=== PATIENT | female | born 1995 | race Caucasian/White ===

== ENCOUNTER 2017-11-26 15:35 | Inpatient (IN) | payer BC ==
--- NOTE | 2017-11-26 17:42 | RADIOLOGY REPORT (SQ) ---
EXAM DESCRIPTION: U/S OB LIMITED COMPLETED DATE/TIME: 11/26/2017 5:26 pm REASON FOR STUDY: sporadic OB care, COMPARISON: None. TECHNIQUE: Limited transabdominal grayscale ultrasound for evaluation of specific requested obstetri tejinder parameters. LIMITATIONS: None. FINDINGS: CERVICAL LENGTH: Not measured. GERMAINE: 3.6 cm, fluid was identified in the right lower quadrant only. FHR: 133 beats per minute. PRESENTATION: Cephalic. OTHER: Composite ultrasound age 34 weeks 1 day. EFW: 2296 g. MELISSA 01/06/2018 IMPRESSION: LIMITED OBSTETRICAL ULTRASOUND WITH MEASURED PARAMETERS DELINEATED ABOVE. Trimester of : Third trimester - 28 weeks to delivery. TECHNICAL DOCUMENTATION: JOB ID: [id number] [employer]- All Rights Reserved Reading location - IP/workstation name: [email or web address]
[2017-11-26 17:51] LABS: URINE AMPHETAMINES SCREEN NEGATIVE; URINE BARBITURATES SCREEN NEGATIVE; URINE BENZODIAZEPINES SCREEN NEGATIVE; URINE COCAINE SCREEN NEGATIVE; URINE MARIJUANA (THC) SCREEN NEGATIVE; URINE METHADONE SCREEN NEGATIVE; URINE PHENCYCLIDINE SCREEN NEGATIVE
[2017-11-26] MEDS ORDERED: RINGERS SOLUTION,LACTATED 1,000 ML IV ONE (18:40)
[2017-11-26] MEDS ORDERED: RINGERS SOLUTION,LACTATED 1,000 ML IV PRN (18:40)
[2017-11-26] MEDS ORDERED: PENICILLIN G POTASSIUM 5,000,000 UNIT in DEXTROSE 5%-WATER 100 ML IV ONE (18:40)
[2017-11-26] MEDS ORDERED: PENICILLIN G-K 5 MILLION UNIT VIAL ONE (18:42)
[2017-11-26] MEDS ORDERED: OXYTOCIN/NORMAL SALINE 20 UNIT/1,000 ML RTUINJ ONE (18:42)
[2017-11-26] MEDS ORDERED: LIDOCAINE 1% INJ-PF (10 MG/ML) 30 ML SDV ONE (18:42)
[2017-11-26] MEDS ORDERED: MISOPROSTOL 0.2 MG TABLET ONE (18:42)
[2017-11-26 18:50] LABS: CHLAM PCR NOT DETECTED (NOT DETECT); GON PCR NOT DETECTED (NOT DETECT)
[2017-11-26] MEDS ORDERED: EPHEDRINE SULFATE INJ 50 MG/1 ML AMPULE ONE (18:53)
[2017-11-26] MEDS ORDERED: BUPIVACAINE HCL 0.25 % INJ/PF (2.5 MG/1 ML) 30 ML VIAL ONE (18:53)
[2017-11-26] MEDS ORDERED: FENTANYL/BUPIVACAINE/NS/PF 0 MCG/0 ML RTUINJ EPI ONE (18:55)
[2017-11-26] MEDS ORDERED: FENTANYL/BUPIVACAINE/NS/PF 200 MCG/100 ML RTUINJ EPI ONE (19:13)
[2017-11-26 19:21] LABS: HEMATOCRIT 35.3 % (36.0-47.0); HEMOGLOBIN 12.3 g/dL (12.0-15.5); MEAN CORPUSCULAR HEMOGLOBIN 33.9 pg (27.0-33.4); MEAN CORPUSCULAR HGB CONC 34.9 g/dL (32.0-36.0); MEAN CORPUSCULAR VOLUME 97 fl (80-97); PLATELET COUNT 289 10^3/uL (150-450); RED BLOOD COUNT 3.64 10^6/uL (3.72-5.28); RED CELL DISTRIBUTION WIDTH 12.6 % (11.5-14.0); WHITE BLOOD COUNT 14.5 10^3/uL (4.0-10.5)
[2017-11-26 20:10] LABS: URINE AMPHETAMINES SCREEN NEGATIVE; URINE BARBITURATES SCREEN NEGATIVE; URINE BENZODIAZEPINES SCREEN NEGATIVE; URINE COCAINE SCREEN NEGATIVE; URINE MARIJUANA (THC) SCREEN NEGATIVE; URINE METHADONE SCREEN NEGATIVE; URINE PHENCYCLIDINE SCREEN NEGATIVE
[2017-11-26] MEDS ORDERED: DIPH/PERTUSS(ACELL)/TETANUS VAC/PF 0.5 ML SYR (>=10YO) IM PRN (20:17)
[2017-11-26] MEDS ORDERED: ZOLPIDEM TARTRATE 5 MG TABLET PO PRN (20:17)
[2017-11-26] MEDS ORDERED: PROMETHAZINE HCL 25 MG TABLET PO PRN (20:17)
[2017-11-26] MEDS ORDERED: NA PHOS,M-B/NA PHOS,DI-BA (ADULT) 133 ML ENEMA PR PRN (20:17)
[2017-11-26] MEDS ORDERED: MEASLES,MUMPS&RUBELLA VACC/PF 0.5 ML VIAL SUBCUT PRN (20:17)
[2017-11-26] MEDS ORDERED: DIBUCAINE 1% OINTMENT 28 GM TP PRN (20:17)
[2017-11-26] MEDS ORDERED: DIPHENHYDRAMINE HCL 25 MG CAPSULE PO PRN (20:17)
[2017-11-26] MEDS ORDERED: MISOPROSTOL 0.2 MG TABLET PR PRN (20:17)
[2017-11-26] MEDS ORDERED: PSEUDOEPHEDRINE HCL 30 MG TABLET PO PRN (20:17)
[2017-11-26] MEDS ORDERED: ACETAMINOPHEN 650 MG SUPP.RECT PR PRN (20:17)
[2017-11-26] MEDS ORDERED: GLYCERIN/WITCH HAZEL LEAF 1 EACH MED..PAD TP PRN (20:17)
[2017-11-26] MEDS ORDERED: OXYTOCIN/NORMAL SALINE 20 UNIT/1,000 ML RTUINJ IV PRN (20:17)
[2017-11-26] MEDS ORDERED: PROMETHAZINE HCL 25 MG SUPP.RECT PR PRN (20:17)
[2017-11-26] MEDS ORDERED: PROMETHAZINE HCL INJ 25 MG/1 ML VIAL IV PRN (20:17)
[2017-11-26] MEDS ORDERED: BENZOCAINE/MENTHOL AEROSOL SPRAY 56 ML TOP PRN (20:17)
[2017-11-26] MEDS ORDERED: MAGNESIUM HYDROXIDE SUSP 30 ML UDCUP PO PRN (20:17)
--- NOTE | 2017-11-26 20:28 | Admission Physical ---
Datetime Report Generated by CPN: 11/26/2017 20:28 CURRENT ADMISSION Chief Complaint: Uterine Contractions Indication for Induction: Not Applicable Admit Impression : Term, Intrauterine ; Active Labor; Intact Membranes Admit Plan: Admit to Unit; Initiate Labor Protocol ALLERGIES Medication Allergies: No Medication Allergies: No Known Allergies (11/26/2017) Latex: No Latex Allergies OBSTETRICAL HISTORY EDC: 12/15/2017 00:00 : 1 Para: 0 Term: 0 : 0 SAB: 0 IAB: 0 Ectopic: 0 Livin Cesareans: 0 VBACs: 0 Multiple Births: 0 Gestational Diabetes: No Rh Sensitization: No Incompetent Cervix: No KIMBERLY: No Infertility: No ART Treatment: No Uterine Anomaly: No IUGR: Yes Hx Previous C/S: No Macrosomia: No Hx Loss/Stillborn: No PIH: No Hx : No Placenta Previa/Abruption: No Depression/PP Depression: Yes PTL/PROM: No Post Hemorrhage: No Current Procedures: Ultrasound Obstetrical History Comments: G1- First unable to verify care, ETOH h/o psa to include, THC, cocaine and herion. H/O Parol intake SEE RECORDS Alcohol: Yes Marijuana : Yes Last Used: 09/30/2017 00:00 Cocaine: Yes Other Illicit Drugs: Yes Cigarettes: Current Some Day Smoker. [id number] MEDICAL HISTORY Diabetes: No Blood Transfusion: No Pulmonary Disease (Asthma, TB): Yes Breast Disease: No Hypertension: No Manager Wholesale Surgery: No Heart Disease: No Hosp/Surgery: Yes Autoimmune Disorder: No Anesthetic Complications: No Kidney Disease: No Abnormal Pap Smear: No Neuro/Epilepsy: Unknown Psychiatric Disorders: Yes Other Medical Diseases: No Hepatitis/Liver Disease: No Significant Family History: No Varicosities/Phlebitis: No Trauma/Violence : No Thyroid Dysfunction: No Medical History Comments: depression- took Zoloft throughout , stopped taking meds two weeks ago, panic disorder with agoraphobia, Tetrogen exposure in early , childhood asthma, wisdom teeth extraction INFECTIOUS HISTORY Gonorrhea: No Genital Herpes: Yes Chlamydia: No Tuberculosis: No Syphilis: No Hepatitis: Yes HIV/AIDS Exposure: No Rash or Viral Illness: No HPV: No Infectious History Comments: HSV and Hep C positive primary outbreak 09/2017 PHYSICAL EXAM General: Normal HEENT: Normal Neurologic: Normal Thyroid: Deferred Heart: Normal Lungs: Normal Breast: Deferred Back: Normal Abdomen: Normal Genitourinary Exam: Normal Extremities: Normal DTRs: Normal Pelvic Type: Adequate Physical Exam Comments: No HSV lesions on exam. Vital Signs: Reviewed VAGINAL EXAM Dilatation: 8 Effacement: 100 Station: 1 Contraction Comments: q 2-3 MEMBRANES Membranes: Intact FETUS A EGA: 37.2 Monitoring: External US FHR- Baseline: 130 Variability: Moderate 6-25bpm Accelerations: 15X15 Decelerations: None FHR Category: Category I Estimated Weight (gm): 2296 Presentation: Vertex Admit Comment: 22yo at 37+5ega by LMP and US at 8+5ega. US done 05/07/2017 and c/w LMP. US today with EFW 2296 with is 2%. Pt with limited care. Only limted records and very limited care. Listed problems: Anxiety/Depression/Agoraphobia, h/o alcoholism, h/o drug use, childhood asthma, h/o swizure poss due to drug use, smoker, teratogen exposure during preg, POss primary outbreak HSV on 09/2017 - treated. Pt arrived with reported ctx although not picking up well onmonitor and reported term but iwth very small abd. cvx closed at presentation. Pt returned from US and noted increase in pain. Cvx now 8cm and admitted. Pt then precipitous delivery. Hep C antibody pos - titer ordered. GBS unknown - PCN one dose given. H/o Drug use TCH/Heroin and cocaine. On parole. UDS positive x 2 during per records (benzo, THC, amphetamines) Was taking adderal and subutex that were not hers. Hep C appears to be a new dx per records. Anticipate vaginal delivery. PLANS FOR LABOR AND DELIVERY Labor and Delivery: None Pain Management: Epidural Feeding Preference: Breast Benefit of Breast Feed Discussed: Yes Circumcision: N/A INFORMED CONSENT Informed Consent Obtained: Vaginal Delivery; Risks, Benefits and Alternatives Discussed Signature: with User ID: [email or web address]
[2017-11-26 20:50] LABS: ALANINE AMINOTRANSFERASE 22 U/L (9-52); ALBUMIN 3.6 g/dL (3.5-5.0); ALKALINE PHOSPHATASE 234 U/L (38-126); ANION GAP 13 (5-19); ASPARTATE AMINO TRANSFERASE 26 U/L (14-36); BILIRUBIN,DIRECT 0.3 mg/dL (0.0-0.4); BILIRUBIN,TOTAL 0.3 mg/dL (0.2-1.3); BLOOD UREA NITROGEN 9 mg/dL (7-20); CALCIUM 9.4 mg/dL (8.4-10.2); CARBON DIOXIDE 18 mmol/L (22-30); CHLORIDE 103 mmol/L (98-107); GLUCOSE 93 mg/dL (75-110); POTASSIUM 4.3 mmol/L (3.6-5.0); SODIUM 134.2 mmol/L (137-145); TOTAL PROTEIN 7.1 g/dL (6.3-8.2)
--- NOTE | 2017-11-26 21:29 | Delivery Summary ---
Del Sum A-C Datetime Report Generated by CPN: 11/26/2017 21:29 DELIVERY PERSONNEL DELIVERY PERSONNEL: [id number] Delivery Doctor:: Princess Rae MD Anesthesiologist:: Gigi Jones MD Labor and Delivery Nurse:: Sondra Flower RNheddler Nurse:: Aydin Richardson RN Animal Technician:: Beronica Hamilton RN Nursery Nurse:: Daniella Armendariz RN Nursery Nurse:: Ruth Ann Adame RN Matting Press Tender/BARREL INSPECTOR: Maki Mathur, SPRAY PAINTER HELPER Additional Personnel: : Emily Swan RN MATERNAL INFORMATION Delivery Anesthesia: Epidural Medications After Delivery: Pitocin Drip 20 Units/1000ml NSS Meds After Delivery Comment: Cytotec 1000 mcg Maternal Complications: Abruptio Placenta Provider Comments: FHR decelerations noted on monitor. In room determined pt now c/c/+1 and AROM with clear fluid noted. Position change and intrauterine recussitation with continued decelerations. patient with adequate expulsive effort. Reviewed need for imminent delivery and need for foreps or VAVD. Pt agreed as r/b/a reviewed. Bladder drained/position confirmed/station and dilation confirmed. Shetty Leukhart forceps attempted to place however they would not articulate well. Therefor FAVD not attempted and VAVD performed. Vacuum applied in proper location with mmHG in green per device instructions and only applied with 3 push/pull efforts. At the conclusion of this noted significant descent past pubic bone and vacuum removed and infant delivered with maternal effort. NICU present due to severe IUGR. SHort cord and possible abruption noted - placenta sent. Placenta delivered spontaneously intact. FF at U. Cytotec placed 1000mcg per rectum. baby to NICU. MOther stable upon provider leaving the room. LABOR SUMMARY EDC: 12/15/2017 00:00 No. Babies in Womb: 1 Attempted: No Labor Anesthesia: Epidural LABOR INFORMATION Reason for Induction: Not Applicable Onset of Labor: 11/26/2017 18:37 Complete Dilatation: 11/26/2017 19:26 Oxytocin: N/A Group B Beta Strep: UNKNOWN Antibiotics # of Doses: 1 Antibiotics Time of Last Dose: 1903 Name of Antibiotic Given: Penicillin Steroids Given: None Reason Steroids Not Administered: Not Applicable MEMBRANES Membranes Rupture Method: Artificial Rupture of Membranes: 11/26/2017 19:29 Length of Rupture (hr): 0.38 Amniotic Fluid Color: Clear Amniotic Fluid Amount: Moderate STAGES OF LABOR Stage 1 hr: 0 Stage 1 min: 49 Stage 2 hr: 0 Stage 2 min: 26 Stage 3 hr: 0 Stage 3 min: 2 Total Time in Labor hr: 1 Total Time in Labor min: 17 VAGINAL DELIVERY Episiotomy: None Laceration #1: None Laceration Extension #1: N/A Laceration Repair: Not Applicable Sponge Count Correct: N/A Sharps Count Correct: N/A CSECTION DELIVERY Primary Indication: N/A Secondary Indication: N/A CSection Incidence: N/A Labor: N/A Elective: N/A CSection Incision: N/A BABY A INFORMATION Infant Delivery Date/Time: 11/26/2017 19:52 Method of Delivery: Vaginal Born in Route : No : N/A Forceps: N/A Vacuum Extraction: Successful Shoulder Dystocia : No PRESENTATION/POSITION BABY A Presentation: Cephalic Cephalic Presentation: Vertex Vertex Position: Left Occipital Anterior Breech Presentation: N/A PLACENTA INFORMATION BABY A Placenta Delivery Time : 11/26/2017 19:54 Placenta Method of Delivery: Spontaneous Placenta Status: Delivered SCORES BABY A Heart Rate 1 min: >100 bpm Resp Effort 1 min: Good Cry Reflex Irritability 1 min: Cough or Sneeze or Pulls Away Muscle Tone 1 min: Active Motion Color 1 min: Body Red [place], Extremities Blue SCORE 1 MIN: 9 Heart Rate 5 min: >100 bpm Resp Effort 5 min: Good Cry Reflex Irritability 5 min: Cough or Sneeze or Pulls Away Muscle Tone 5 min: Active Motion Color 5 min: Body Red [place], Extremities Blue Resuscitation Effort 5 min: Tactile Stimulation SCORE 5 MIN: 9 INFANT INFORMATION BABY A Gestational Age at Delivery: 37.2 Gestational Status: Early Term- 37- 38.6 Weeks Infant Outcome : Liveborn Condition : Fair Sex: Male IDENTIFICATION BABY A Infant Verification Date/Time: 11/26/2017 20:04 ID Band Number: [id number] Mother's Name Verified: Yes Infant RN Verifying : LEE Cabral, LEE Camacho and LEE Richards WEIGHT/LENGTH BABY A Infant Birthweight (gm): 2263 Infant Weight (lb): 5 Infant Weight (oz): 0 Length (in): 17.00 Infant Length (cm): 43.18 CORD INFORMATION BABY A No. Cord Vessels: 3 Nuchal Cord : N/A Cord Blood Taken: Yes-For Storage (Mom's Blood type +) Infant Suction: Mouth ASSESSMENT BABY A Skin to Skin: No BABY B INFORMATION : N/A SIGNATURES Signature: with User ID: [email or web address]
[2017-11-26] MEDS ORDERED: PENICILLIN G POTASSIUM 2,500,000 UNIT in DEXTROSE 5%-WATER 50 ML IV SCH (22:41)
[2017-11-26] MEDS: FAMOTIDINE 20 MG TABLET PO SCH (22:57)
[2017-11-26] MEDS: IBUPROFEN 800 MG TABLET PO SCH (22:57)
[2017-11-26] MEDS: ACETAMINOPHEN WITH CODEINE #3 TABLET PO PRN (23:49)
[2017-11-27] MEDS: IBUPROFEN 800 MG TABLET PO SCH ×3 (06:13→21:55)
[2017-11-27 07:21] LABS: HEMATOCRIT 32.1 % (36.0-47.0); HEMOGLOBIN 11.2 g/dL (12.0-15.5); MEAN CORPUSCULAR HEMOGLOBIN 33.8 pg (27.0-33.4); MEAN CORPUSCULAR VOLUME 97 fl (80-97); PLATELET COUNT 255 10^3/uL (150-450); RED BLOOD COUNT 3.32 10^6/uL (3.72-5.28); RED CELL DISTRIBUTION WIDTH 12.8 % (11.5-14.0); WHITE BLOOD COUNT 13.8 10^3/uL (4.0-10.5)
[2017-11-27] MEDS: ACETAMINOPHEN WITH CODEINE #3 TABLET PO PRN ×3 (08:36→19:56)
[2017-11-27] MEDS: DOCUSATE SODIUM 100 MG CAPSULE PO SCH ×2 (11:10→17:29)
[2017-11-27] MEDS: PRENATAL VITAMIN W DHA CAPSULE PO SCH (11:10)
[2017-11-27] MEDS: FERROUS SULFATE 325 MG TABLET PO SCH ×2 (11:10→17:29)
[2017-11-27] MEDS: SENNOSIDES/DOCUSATE 8.6-50 MG 1 EACH TABLET PO SCH (11:11)
[2017-11-27] MEDS: FAMOTIDINE 20 MG TABLET PO SCH ×2 (11:11→21:55)
--- NOTE | 2017-11-27 12:27 | PDOC PROGRESS REPORT ---
Subjective-OB Progress Note for:: 11/27/17 Subjective: PP Day #1, doing well, , no complaints this morning Physical Exam (OB) Vital Signs: Temp Pulse Resp BP Pulse Ox 98.3 F 67 20 112/84 99 11/27/17 08:10 11/27/17 08:10 11/27/17 08:10 11/27/17 08:10 11/27/17 08:10 Intake & Output 11/26/17 11/27/17 11/28/17 06:59 06:59 06:59 Weight 58.7 kg - General General Appearance: Appears well, Alert - PIH/Pre-Eclampsia DTR's: 1 + Clonus: Negative Headache: Absent Epigastric Pain: No Visual Changes: No - Lochia Lochia Amount: Small 10-25 ml Lochia Color: Rubra/Red - Abdomen Description: Soft, Round Hernia Present: No Fundal Description: Firm, Midline Fundal Height: u/u - u/2 - Respiratory Respiratory Status: No respiratory distress - Extremities Upper extremity: Normal inspection Lower extremities: Normal inspection - Neurological Orientation: AAOx4 Speech: Normal - Psychological Associated symptoms: Normal affect, Normal mood Objective-Diagnostic Laboratory: 11/27/17 06:46 11/26/17 19:00 11/26/17 11/26/17 11/26/17 18:34 19:00 19:00 WBC 14.5 H RBC 3.64 L Hgb 12.3 Hct 35.3 L MCV 97 MCH 33.9 H MCHC 34.9 RDW 12.6 Plt Count 289 Sodium Potassium Chloride Carbon Dioxide Anion Gap BUN Creatinine Est GFR ( Amer) Est GFR (Non-Af Amer) Glucose Calcium Total Bilirubin AST ALT Alkaline Phosphatase Total Protein Albumin Urine Color Cancelled Urine Appearance Cancelled Urine pH Cancelled Ur Specific [place] Cancelled Urine Protein Cancelled Urine Glucose (UA) Cancelled Urine Ketones Cancelled Urine Blood Cancelled Urine Nitrite Cancelled Ur Leukocyte Esterase Cancelled Urine WBC (Auto) Cancelled Urine RBC (Auto) Cancelled Blood Type A POSITIVE Antibody Screen NEGATIVE 11/26/17 11/27/17 19:00 06:46 WBC 13.8 H RBC 3.32 L Hgb 11.2 L Hct 32.1 L MCV 97 MCH 33.8 H MCHC 35.0 RDW 12.8 Plt Count 255 Sodium 134.2 L Potassium 4.3 Chloride 103 Carbon Dioxide 18 L Anion Gap 13 BUN 9 Creatinine 0.76 Est GFR ( Amer) > 60 Est GFR (Non-Af Amer) > 60 Glucose 93 Calcium 9.4 Total Bilirubin 0.3 AST 26 ALT 22 Alkaline Phosphatase 234 H Total Protein 7.1 Albumin 3.6 Urine Color Urine Appearance Urine pH Ur Specific [place] Urine Protein Urine Glucose (UA) Urine Ketones Urine Blood Urine Nitrite Ur Leukocyte Esterase Urine WBC (Auto) Urine RBC (Auto) Blood Type Antibody Screen Assessment and Plan(PN) - Assessment and Plan (1) Drug use affecting Is this a current diagnosis for this admission?: Yes (2) Hepatitis C antibody test positive Is this a current diagnosis for this admission?: Yes (3) Status post vacuum-assisted vaginal delivery Is this a current diagnosis for this admission?: Yes (4) Tetrahydrocannabinol (THC) use disorder, mild, abuse Is this a current diagnosis for this admission?: Yes - Time Spent with Patient Time with patient: Less than 15 minutes - Disposition Anticipated Discharge: Home Within: within 24 hours
[2017-11-28] MEDS: IBUPROFEN 800 MG TABLET PO SCH (05:22)
[2017-11-28] MEDS: ACETAMINOPHEN WITH CODEINE #3 TABLET PO PRN (05:52)
[2017-11-28 09:43] VITALS: BP 100/62
--- NOTE | 2017-11-28 09:54 | PDOC PROGRESS REPORT ---
Subjective-OB Progress Note for:: 11/28/17 Subjective: PP Day #2, doing well, , equipment planner initiated, no complaints this morning Physical Exam (OB) Vital Signs: Temp Pulse Resp BP Pulse Ox 98.2 F 65 18 100/62 98 11/28/17 07:41 11/28/17 07:41 11/28/17 07:41 11/28/17 07:41 11/28/17 07:41 Intake & Output 11/27/17 11/28/17 11/29/17 06:59 06:59 06:59 Intake Total 350 Balance 350 Weight 58.7 kg - General General Appearance: Appears well, Alert - PIH/Pre-Eclampsia DTR's: 2 + Clonus: Negative Headache: Absent Epigastric Pain: No Visual Changes: No - Lochia Lochia Amount: Scant < 10 ml Lochia Color: Rubra/Red - Abdomen Description: Soft, Round Hernia Present: No Fundal Description: Firm, Midline Fundal Height: u/u - u/2 - Respiratory Respiratory Status: No respiratory distress - Extremities Upper extremity: Normal inspection Lower extremities: Normal inspection - Neurological Cognition: Normal Orientation: AAOx4, Alert - Psychological Associated symptoms: Normal affect, Normal mood Objective-Diagnostic Laboratory: 11/27/17 06:46 11/26/17 19:00 Assessment and Plan(PN) - Assessment and Plan (1) Drug use affecting Qualifiers: Trimester: unspecified trimester Qualified Code(s): O99.320 - Drug use complicating , unspecified trimester Is this a current diagnosis for this admission?: Yes (2) Hepatitis C antibody test positive Is this a current diagnosis for this admission?: Yes (3) Status post vacuum-assisted vaginal delivery Is this a current diagnosis for this admission?: Yes (4) Tetrahydrocannabinol (THC) use disorder, mild, abuse Is this a current diagnosis for this admission?: Yes - Time Spent with Patient Time with patient: Less than 15 minutes - discharge pt today, baby may have to stay for further evaluation. Pt may board if possible - Disposition Anticipated Discharge: Home
[2017-11-28] MEDS: FAMOTIDINE 20 MG TABLET PO SCH (09:55)
[2017-11-28] MEDS: SENNOSIDES/DOCUSATE 8.6-50 MG 1 EACH TABLET PO SCH (09:55)
[2017-11-28] MEDS: DOCUSATE SODIUM 100 MG CAPSULE PO SCH (09:55)
[2017-11-28] MEDS: PRENATAL VITAMIN W DHA CAPSULE PO SCH (09:55)
[2017-11-28] MEDS: FERROUS SULFATE 325 MG TABLET PO SCH (09:55)
--- NOTE | 2017-11-28 09:59 | PDOC DISCHARGE SUMMARY ---
Final Diagnosis Discharge Date: 11/28/17 - Final Diagnosis (1) Drug use affecting Is this a current diagnosis for this admission?: Yes (2) Hepatitis C antibody test positive Is this a current diagnosis for this admission?: Yes (3) Status post vacuum-assisted vaginal delivery Is this a current diagnosis for this admission?: Yes (4) Tetrahydrocannabinol (THC) use disorder, mild, abuse Is this a current diagnosis for this admission?: Yes Discharge Data - Discharge Medication Prescriptions: Ibuprofen [Motrin 800 mg Tablet] 800 mg PO Q8 #30 tablet Home Medications: Pnv No.103/Folic/Om3s/Fish Oil [ Gummies] 1 each PO DAILY 11/26/17 Ibuprofen [Motrin 800 mg Tablet] 800 mg PO Q8 #30 tablet 11/28/17 Reason(s) for Admission: Onset of Labor Procedures: Ultrasound Intrapartum Procedure(s): Spontaneous Vaginal Delivery, Vacuum Extraction - Diagnosis Test Laboratory: Temp Pulse Resp BP Pulse Ox 98.2 F 65 18 100/62 98 11/28/17 07:41 11/28/17 07:41 11/28/17 07:41 11/28/17 07:41 11/28/17 07:41 11/26/17 11/26/17 11/26/17 16:43 19:00 19:20 RBC 3.64 L Hgb 12.3 Hct 35.3 L Urine Opiates Screen NEGATIVE NEGATIVE 11/27/17 06:46 RBC 3.32 L Hgb 11.2 L Hct 32.1 L Urine Opiates Screen - Discharge information/Instructions Discharge Activity: Activity As Tolerated Discharge Diet: As Tolerated, Regular Disposition: HOME, SELF-CARE Follow up with: [facility] in: 3, Weeks
[2017-11-29 09:22] LABS: HSV-I IGG AB 3.8 index (0.00-0.90)
[2017-11-29 14:37] LABS: HEPATITIS C QUANTITATION 4380 IU/mL (.)
== END 2017-11-28 13:30 | disposition home or self-care (01) | DRG 774 ==
LOC: LC 15:35 → LR 18:42 → 2S 22:05
PROVIDERS: ADMIT Student in an Organized Health Care Education/Training Program; ATTEND Student in an Organized Health Care Education/Training Program
PROC: 10D07Z6 Extraction of Products of Conception, Vacuum, Via Natural or Artificial Opening (ICD-10-PCS; principal; 2017-11-26)
PROC: 4A1HXCZ Monitoring of Products of Conception, Cardiac Rate, External Approach (ICD-10-PCS; 2017-11-26)
PROC: 3E0234Z Introduction of Serum, Toxoid and Vaccine into Muscle, Percutaneous Approach (ICD-10-PCS; 2017-11-28)
DX: O76 Abnormality in fetal heart rate and rhythm complicating labor and delivery (principal); O98.32 Other infections with a predominantly sexual mode of transmission complicating childbirth; O99.324 Drug use complicating childbirth; O98.42 Viral hepatitis complicating childbirth; F11.90 Opioid use, unspecified, uncomplicated; F14.90 Cocaine use, unspecified, uncomplicated; F12.90 Cannabis use, unspecified, uncomplicated; O99.334 Smoking (tobacco) complicating childbirth; F17.210 Nicotine dependence, cigarettes, uncomplicated; O99.344 Other mental disorders complicating childbirth; F32.9 Major depressive disorder, single episode, unspecified; O36.5930 Maternal care for other known or suspected poor fetal growth, third trimester, not applicable or unspecified; O69.3XX0 Labor and delivery complicated by short cord, not applicable or unspecified; F40.01 Agoraphobia with panic disorder; B19.20 Unspecified viral hepatitis C without hepatic coma; A60.00 Herpesviral infection of urogenital system, unspecified; Z3A.37 37 weeks gestation of pregnancy; Z23 Encounter for immunization; Z37.0 Single live birth
CPT/HCPCS: 36415; 76815; 80053; 80307; 85027; 86592; 86695; 86696; 86701; 86850; 86900; 86901; 87081; 87491; 87522; 87591; 88307; 90715; 94760; J2540; J2590; J3490